=== PATIENT | female | born 1940 | race Caucasian/White ===

== ENCOUNTER 2017-07-22 13:40 | Inpatient (IN) ==
--- NOTE | 2017-07-21 16:40 | Discharge Summary ---
<Karey Prajapati E - Last Filed: 07/21/17 16:37> Date of Encounter: 07/21/17 - Discharge Diagnosis (1) Arthritis of left knee Priority: Primary Status: Chronic (2) Hypothyroidism Priority: Secondary Status: Chronic Qualifiers: Hypothyroidism type: unspecified Qualified Code(s): E03.9 - Hypothyroidism , unspecified (3) HTN (hypertension) Priority: Secondary Status: Chronic Qualifiers: Hypertension type: unspecified Qualified Code(s): I10 - Essential (primary ) hypertension (4) HLD (hyperlipidemia) Priority: Secondary Status: Chronic Qualifiers: Hyperlipidemia type: unspecified Qualified Code(s): E78.5 - Hyperlipidemia , unspecified (5) Glaucoma Priority: Secondary Status: Chronic Qualifiers: Glaucoma type: unspecified Laterality: unspecified laterality Qualified Code(s): H40.9 - Unspecified glaucoma - Discharge Medications Home Medications: Aspirin Enteric Coated [Aspirin EC] 325 mg PO DAILY 21 Days #21 tablet. [Rx] OxyCODONE Immed Rel [Roxicodone 5 MG] 5 mg PO Q6HR PRN 7 Days #28 tablet [Rx] Acetaminophen [Tylenol Arthritis] 650 mg PO BID 07/22/17 [History] Atorvastatin Calcium [Lipitor] 20 mg PO QPM 07/22/17 [History] Levothyroxine [Synthroid] 75 mcg PO DAILY 07/22/17 [History] Lisinopril [Zestril] 20 mg PO DAILY 07/22/17 [History] Timolol Maleate 0.5% 1 drop BOTH EYES BID 07/22/17 [History] Allergies/Adverse Reactions: 3 Allergy/AdvReac Type Severity Reaction Status Date / Time rosuvastatin [From Crestor] AdvReac Cramping Verified 07/22/17 18:35 of the Muscles simvastatin [From Zocor] AdvReac Cramping Verified 07/22/17 18:35 of the Muscles PERCH Allergy Anaphylaxis Uncoded 07/22/17 18:35 Primary care physician: Nayely Suarez MD - Patient Status Disposition: Transfer Inpatient Rehab Fac Condition: Good - Discharge Instructions Follow Up With: Nayely Suarez MD [Primary Care Provider] - - Hospital Course Hospital course: Ms. Brown is a 77 year old female - Time Spent with Patient Total time spent providing and/or coordinating discharge services: <MoultonDarrin - Last Filed: 07/24/17 09:43> Date of Encounter: 07/24/17 Time of Encounter: 09:42 - Discharge Diagnosis (1) Arthritis of left knee Priority: Primary Status: Chronic (2) Hypothyroidism Priority: Secondary Status: Chronic Qualifiers: Hypothyroidism type: unspecified Qualified Code(s): E03.9 - Hypothyroidism , unspecified (3) HTN (hypertension) Priority: Secondary Status: Chronic Qualifiers: Hypertension type: unspecified Qualified Code(s): I10 - Essential (primary ) hypertension (4) HLD (hyperlipidemia) Priority: Secondary Status: Chronic Qualifiers: Hyperlipidemia type: unspecified Qualified Code(s): E78.5 - Hyperlipidemia , unspecified (5) Glaucoma Priority: Secondary Status: Chronic Qualifiers: Glaucoma type: unspecified Laterality: unspecified laterality Qualified Code(s): H40.9 - Unspecified glaucoma (6) Status post total left knee replacement Priority: Primary Status: Acute Primary care physician: Nayely Suarez MD - Patient Status Functional capacity at discharge: uses cane/walker Overall status at discharge: patient is progressing back to baseline - Hospital Course Hospital course: Ms. Brown is a 77 year old female Status post left total knee replacement The patient had an uneventful postoperative course. They received antibiotics and physical therapy and were discharged in stable condition. There will follow -up in the office in 2 weeks. - Time Spent with Patient Total time spent providing and/or coordinating discharge services:
--- NOTE | 2017-07-21 16:42 | Physician Discharge Referral ---
Home Health/Hosp Referral Info Transfer to: Home Health Attending Provider: Dr. Darrin Moulton - Diagnosis (1) Arthritis of left knee Priority: Primary Status: Chronic (2) Hypothyroidism Priority: Secondary Status: Chronic (3) HTN (hypertension) Priority: Secondary Status: Chronic (4) HLD (hyperlipidemia) Priority: Secondary Status: Chronic (5) Glaucoma Priority: Secondary Status: Chronic (6) Status post total left knee replacement Priority: Primary Status: Acute - Respiratory Orders Smoking Cessation: Smoking cessation has been advised. For more information, call the [place] Tobacco Quit Line at 5-055-LVRJ-NOW. - Dressing/Wound Care Site: left knee Type of Dressing/Treatments w/Frequency: Opsite placed. Keep dressing intact until first follow up appointment. If > 50% saturated, notify office, remove dressing and place appropriate dressing back in place. Leave Zipline intact. Opsite dressing is water resistant, not water- proof. OK to shower, but do not get dressing wet. - Diet/Nutrition Diet/Nutrition Orders: Regular - Activity Activity Orders: Up ad angelic, Ambulate, Chair, Walker Activity: List: Total Knee replacement Precautions x 6 weeks Apply cold therapy wrap 3-6x/day for 20 minutes at a time. Encourage ambulation throughout the day and incentive spirometer 10x/hour. Elevate affected extremity above heart as tolerated. Brace: Wear knee immobilizer at night x 2 weeks. - Services Needed Following services are medically necessary services: Nursing, Home Health Aide, Physical Therapy, Occupational Therapy - Transfer Medications Prescriptions: OxyCODONE Immed Rel [Roxicodone 5 MG] 5 mg PO Q6HR PRN 7 Days #28 tablet PRN Reason: Pain Aspirin Enteric Coated [Aspirin EC] 325 mg PO DAILY 21 Days #21 tablet. Home Medications: Aspirin Enteric Coated [Aspirin EC] 325 mg PO DAILY 21 Days #21 tablet. [Rx] OxyCODONE Immed Rel [Roxicodone 5 MG] 5 mg PO Q6HR PRN 7 Days #28 tablet [Rx] Allergies/Adverse Reactions: 3 Allergy/AdvReac Type Severity Reaction Status Date / Time rosuvastatin [From Crestor] Allergy Cramping Unverified 06/24/17 11:44 of the Muscles simvastatin [From Zocor] Allergy Cramping Unverified 06/24/17 11:44 of the Muscles Certification: Further, I certify that my clinical findings support that this patient is homebound (i.e. absences from home require considerable and taxing effort and are for medical reasons or yazidism services or infrequently or short duration when for other reasons) because: Homebound Reason: Post-surgery restriction and or conditions limit ability to leave home Attestation: My signature below is to certify that this patient is under my care and that I, or nurse practitioner, or a physician retail store assistant working with me, has a face-to- face encounter with this patient.
[2017-07-22] MEDS ORDERED: ROPIVACAINE HCL/PF 0.5% 30 ML VIAL ONE ×2 (13:46→14:47)
[2017-07-22] MEDS ORDERED: CeFAZolin Syr 2,000MG/20 ML 2,000 MG/20 ML SYRINGE IVPB ONE (13:55)
--- NOTE | 2017-07-22 13:55 | Anesthesia Evaluation PreOp ---
Date of Encounter: 07/22/17 Time of Encounter: 13:53 - Past History Planned Operation: Left Total Knee Arthroplasty Cardiac History: HTN, Hyperlipidemia Pulmonary History: Denies Any Significant HX [employer]BI[employer]ICE [employer]ATION ATTENDANT History: Denies Any Significant HX Other Medical History: Diabetes Type II (diet controlled), Thyroid Anesthesia History: No Prior Anesthetic Complications, Past Anesthesia Alcohol Use: none Drug use: none Medications and Allergies Aspirin Enteric Coated [Aspirin EC] 325 mg PO DAILY 21 Days #21 tablet. [Rx] OxyCODONE Immed Rel [Roxicodone 5 MG] 5 mg PO Q6HR PRN 7 Days #28 tablet [Rx] Acetaminophen [Tylenol Arthritis] 650 mg PO BID 07/22/17 [History] Atorvastatin Calcium [Lipitor] 20 mg PO QPM 07/22/17 [History] Levothyroxine [Synthroid] 75 mcg PO DAILY 07/22/17 [History] Lisinopril [Zestril] 20 mg PO DAILY 07/22/17 [History] Timolol Maleate 0.5% 1 drop BOTH EYES BID 07/22/17 [History] 3 Allergy/AdvReac Type Severity Reaction Status Date / Time rosuvastatin [From Crestor] AdvReac Cramping Unverified 07/22/17 13:55 of the Muscles simvastatin [From Zocor] AdvReac Cramping Unverified 07/22/17 13:55 of the Muscles - Meds/Allergy Pre-op Review Medications Reviewed: Yes Allergies Reviewed: Yes Beta Blockers on Current Med List: No Anesthesia Results - Labs Laboratory Tests 06/24/17 06/24/17 06/24/17 12:00 12:00 12:00 WBC 4.5 Hgb 14.1 Hct 44.0 Plt Count 259 PT 10.6 Sodium 140 Potassium 4.1 BUN 12 Creatinine 0.79 - Imaging EKG: report reviewed (06/24/2017 SINUS RHYTHM MODERATE VOLTAGE CRITERIA FOR LVH , CONSIDER NORMAL VARIANT POSSIBLE ANTERIOR MYOCARDIAL INFARCTION, PROBABLY OLD) Anesthesia Exam O2 Sat Height 1.63 m Height 1.63 m Weight 69.4 kg Weight 69.4 kg O2 Sat by Pulse Oximetry 93 Vital Signs Temp Pulse Resp BP Pulse Ox 97.9 F 76 16 185/82 93 07/22/17 13:57 07/22/17 13:57 07/22/17 13:57 07/22/17 13:57 07/22/17 13:57 Height: 5'4'' Weight: 153 lbs NPO (# of Hours): 8 Pain Scale: 0 Pain Scale Used: Numeric (1 - 10) - HEENT Pupil (Motor): EOMI Mallampati: II Teeth: Normal, Missing Oral Opening: Greater than 3 - AUTOMO[employer]ICE [employer]ATION ATTENDANT LOC: Oriented [employer]ICE [employer]ATION ATTENDANT Motor: Normal RUE, Normal LUE, Normal RLE, Normal LLE, Normal Face [employer]ICE [employer]ATION ATTENDANT Sensory: Normal: RUE, LUE, RLE, LLE, Face - Cardiac Rhythm: Regular Murmur: None - Pulmonary Breath Sounds: bilateral Clear Respiratory Effort: Symmetrical Anesthesia Assess/Plan ASA Score: 2 Modified [place] Scale for Level of Consciousness: Cooperative, oriented, and tranquil Anesthetic Plan: General, Regional Monitoring Plan: Standard Monitors Recovery Plan: PACU
[2017-07-22] MEDS ORDERED: Plasma-Lyte A (PH 7.4) 1,000 ML IVC SCH ×2 (14:00→15:45)
[2017-07-22] MEDS ORDERED: *HR* Propofol 200 MG/20 ML VIAL IVP ONE (14:16)
[2017-07-22] MEDS ORDERED: *HR* FentaNYL (PF) 100 MCG/2 ML VIAL ONE (14:16)
[2017-07-22] MEDS ORDERED: Dexamethasone 4 MG/ML VIAL ONE ×2 (14:17→14:48)
[2017-07-22] MEDS ORDERED: Lidocaine -MPF 2% 2 ML VIAL ONE (14:17)
[2017-07-22] MEDS ORDERED: Ondansetron 4 MG/2 ML VIAL ONE (14:17)
[2017-07-22] MEDS ORDERED: Lidocaine -MPF 4% 5 ML AMPUL ONE (14:17)
--- NOTE | 2017-07-22 14:33 | History & Physical Report ---
Date of Encounter: 07/22/17 Time of Encounter: 14:33 24 Hour HP Update - Instructions Instructions: If the History and Physical is less than 30 days old and was completed prior to A.M. admission and or procedure and has NOT been updated on calendar day of procedure please complete this update prior to performing procedure. - Update Patient reports changes in Medical Condition: No Changes in examination, assessment, or condition: No Changes in Medication: No Preop tests/diagnostics Reviewed: Yes Surgery Remains Indicated: Yes Consent for Planned Operative Procedure(s) Verified: Yes - Pre-Operative Checklist Preoperative Checklist Indicated: No Prophylactic Antibiotic Ordered: Yes Is VTE Prophylaxis Indicated?: Yes
[2017-07-22] MEDS ORDERED: Bupivacaine/Clonidine Syringe 1 EACH SYRINGE ONE (14:47)
[2017-07-22] MEDS ORDERED: Ethanol\\Acetic Acid\\Na Ace\\Ben 1,000 ML IRRIG.SOLN IR ONE (15:10)
--- NOTE | 2017-07-22 15:34 | Anesthesia Procedures ---
Date of Encounter: 07/22/17 Time of Encounter: 15:30 Procedures: Anesthesia - Nerve Block Procedure Date: 07/22/17 Time: 15:30 Allergies/Adv Reactions: Statins Pre-op Diagnosis: Left Knee Arthritis Surgical Procedure: Left Total Knee Arthroplasty Checklist: Correct Patient Identifier, Correct procedure, History checked Correct side: Left Blood Thinner: No Monitor Applied: EKG, BP, Pulse Oximetry Supplemental Oxygen via Nasal Cannula (L/min): 2 Sedation: Fentanyl (mcg): 100 Indication: Post Op Analgesia Pre-op Neuro Deficits: No Block Type: Femoral, Other Catheter placed: No Sterile Technique: Yes Ultrasound used: Yes Anatomy identified: Yes Visual spread of Local: Yes Neuro Stimulation: Yes Nerve Stimulator Range: 0.2 - 0.4 mA Blood on Needle Aspiration: No Smooth Injection of Local: Yes Pain with Injection of Local: No Prep: Chlorhexadine Needle: 22 x 50 mm Stimuplex, 21 x 100 mm Stimuplex Local: 0.25% Bupivicaine w/Clonidine 20 mcg/cc, Ropivacaine Volume (cc): 55 Number of Attempts: 1 Complications: None/effective block Vitals: Last Vital Signs Temp 97.9 F 07/22/17 13:57 Pulse 71 07/22/17 15:28 Resp 16 07/22/17 13:57 BP 172/83 07/22/17 15:28 Pulse Ox 97 07/22/17 15:28 Comments: Ropivacaine 0.5% with decadron 4mg (30ml) for femoral block. Bupivacaine 0.25% with 20mcg/ml Clonidine (25ml)
[2017-07-22] MEDS ORDERED: Naloxone 0.4 MG/ML INJ IVP PRN ×2 (15:42→17:50)
[2017-07-22] MEDS ORDERED: Ondansetron 4 MG/2 ML VIAL IVP ONE (15:42)
[2017-07-22] MEDS ORDERED: *HR* HYDROmorphone (PF) 1 MG/ML SYRINGE IVP PRN ×2 (15:42→17:50)
[2017-07-22] MEDS ORDERED: Albuterol 2.5 MG/3 ML NEBULIZER IH ONE (15:42)
[2017-07-22] MEDS ORDERED: EPHEDrine 50 MG/ML VIAL ONE (15:52)
[2017-07-22] MEDS ORDERED: *HR* HYDROmorphone 2 MG/ML SYRINGE ONE (16:02)
--- NOTE | 2017-07-22 16:18 | Orthopedic Operative Note ---
Date of procedure: 07/22/17 Pre-op diagnosis: Left knee arthritis Post-op diagnosis: same Procedure: Procedure: Left Total knee replacement Estimated blood loss: 200 cc Hardware: Metal and polyethylene replacement. Arthrex Femur: 4 Tibia: 3 PS insert: 12 Patella: 37 Exam Under anesthesia: Loss full extension 10 degrees full flexion Procedural Notes: Grade 4 arthritic changes medial compartment and patellofemoral joint. Operative procedure: The patient was brought to the operating room and placed on the operating room table. After general anesthesia was administered the operative knee was examined. Findings were noted in the exam under anesthesia. The operative extremity was prepped and draped in sterile surgical fashion. The patient received IV antibiotics prior to skin incision. A standard midline incision was made centered over the patella. The incision was made through the skin and subcutaneous tissue. A medial parapatellar tendon approach was performed. Care was taken to preserve tissue along the medial aspect of the patella. And to protect the patella tendon. The deep MCL was released off the medial tibia. The infra patella fat pad was excised. Knee was brought into flexion. Patient noted to have grade 4 arthritic changes medial compartment and patellofemoral joint. The entry hole was made for the intramedullary femoral guide. The guide was seated in 6 degrees of valgus. Anterior cut was made followed by the distal cut. The ACL the PCL the medial and the lateral menisci were excised. The tibia was subluxed forward. The entry hole was made for the intramedullary tibial guide. Guide was seated to resect 2 mm off the more abnormal side. The knee was brought into flexion the distal femur was sized to a 4. The femoral guide was seated, the anterior cut was made followed by the posterior condylar cut, followed by the chamfer cuts. The finishing guide was seated the box cut was made and the lug holes were drilled. The tibia was sized to a 3, the tibial tray was seated and prepared with the large drill followed by the fin cutter. Trial reduction revealed full extension no varus valgus instability with the appropriate 12 PS Janis. The patella was everted and cut was made at the level of the insertion of the quadriceps and patella tendon. The patella was sized to 34 the guide was seated and the lug holes are drilled. Trial reduction revealed excellent patella tracking. All trial components were removed all bony surfaces were irrigated. The tibia was cemented first followed by the femur. The 12 PS Janis was seated and the knee was brought into full extension. The patella was cemented and held in place with the patellar holding clamp. After the cement had hardened, the knee sat for 2 minutes with a Betadine saline solution. The PA close the knee. The knee was then irrigated out with 2 L of pulse irrigation. The extensor mechanism was closed with #2 FiberWire suture and #2 PDS suture. The subcutaneous tissue was then irrigated and closed deep with #1 PDS suture superficially with 0 PDS suture and skin was closed with skin lili. The patient was then placed in a sterile dressing and a postoperative brace extubated and transferred to recovery room in stable condition. Anesthesia: GETA Surgeon: Darrin Moulton Condition: stable Disposition: PACU
--- NOTE | 2017-07-22 17:23 | Anesthesia Evaluation Post Op ---
Date of Encounter: 07/22/17 Time of Encounter: 17:23 - Vital Signs Vital Signs: Vital Signs/O2 Sat, Most Current Temp Pulse Resp BP Pulse Ox 97.4 F L 75 16 138/66 98 07/22/17 16:54 07/22/17 17:14 07/22/17 17:14 07/22/17 17:14 07/22/17 17:14 - Lungs Lungs: Clear Ascult./Percussion - Airway Airway: Non-obstructed - Cardiovascular Regular Rate - Mental Status Mental Status: Alert & Oriented, Answers Appropriately - Pain Pain Scale: 0 Pain Scale used: Numeric (1 - 10) - Nausea Vomiting Nausea Vomiting: Not Present - Hydration Hydration: NPO, Has not voided - Discharge PostOp Status: Transfer Patient to floor
[2017-07-22 17:29] LABS: Hematocrit 38.8 % (35.3-44.9); Hemoglobin 12.2 g/dL (11.5-15.4)
[2017-07-22] MEDS ORDERED: *HR* OxyCODONE Immed Rel 5 MG TABLET PO PRN (17:50)
[2017-07-22] MEDS ORDERED: Temazepam 15 MG CAPSULE PO PRN (17:50)
[2017-07-22] MEDS ORDERED: Sennosides 8.6 MG TABLET PO PRN (17:50)
[2017-07-22] MEDS ORDERED: MOM Conc 10 ML UD.LIQ PO PRN (17:50)
[2017-07-22] MEDS ORDERED: Ringers Solution, Lactated 1,000 ML IVC SCH (17:50)
[2017-07-22] MEDS ORDERED: *HR* Enoxaparin 30 MG/0.3 ML SYRINGE SQ SCH (18:00)
[2017-07-22] MEDS: *HR* OxyCODONE Immed Rel 5 MG TABLET PO PRN (18:36)
[2017-07-22] MEDS: *HR* Enoxaparin 30 MG/0.3 ML SYRINGE SQ SCH (18:37)
[2017-07-22] MEDS: CeFAZolin Premix DUPLEX 2,000 MG/50 ML BAG IVPB SCH (23:01)
[2017-07-23] MEDS: *HR* OxyCODONE Immed Rel 5 MG TABLET PO PRN ×2 (04:09→20:08)
[2017-07-23] MEDS: CeFAZolin Premix DUPLEX 2,000 MG/50 ML BAG IVPB SCH (06:02)
[2017-07-23] MEDS: *HR* Enoxaparin 30 MG/0.3 ML SYRINGE SQ SCH ×2 (06:03→17:59)
--- NOTE | 2017-07-23 06:55 | Orthopedics Progress Note ---
Date of Encounter: 07/23/17 Time of Encounter: 06:54 - Assessment and Plan (1) Arthritis of left knee Current Visit: No Status: Chronic (2) Hypothyroidism Current Visit: No Status: Chronic Qualifiers: Hypothyroidism type: unspecified Qualified Code(s): E03.9 - Hypothyroidism , unspecified (3) HTN (hypertension) Current Visit: No Status: Chronic Qualifiers: Hypertension type: unspecified Qualified Code(s): I10 - Essential (primary ) hypertension (4) HLD (hyperlipidemia) Current Visit: No Status: Chronic Qualifiers: Hyperlipidemia type: unspecified Qualified Code(s): E78.5 - Hyperlipidemia , unspecified (5) Glaucoma Current Visit: No Status: Chronic Qualifiers: Glaucoma type: unspecified Laterality: unspecified laterality Qualified Code(s): H40.9 - Unspecified glaucoma (6) Status post total left knee replacement Current Visit: No Status: Acute Subjective Interval history: Patient was seen this morning doing well without complaints. Afebrile vital signs stable. Operative extremity: Neurovascularly intact Dressing clean dry and intact Calves nontender Assessment and plan: Continue with postoperative care Hematocrit 38 Objective Vital signs: Vital Signs Temp Pulse Resp BP Pulse Ox 07/23/17 06:50 98.0 F 66 16 108/68 93 07/23/17 03:54 97.6 F 67 17 107/61 92 07/22/17 23:50 97.7 F 69 16 118/79 94 07/22/17 20:29 97.5 F L 73 16 132/68 97 07/22/17 19:35 97.4 F L 67 16 130/65 97 07/22/17 19:15 97.4 F L 67 15 138/68 98 07/22/17 18:33 97.8 F 68 14 140/72 96 07/22/17 17:59 97.5 F L 73 16 138/71 94 07/22/17 17:33 97.3 F L 77 16 143/71 95 07/22/17 17:24 97.0 F L 75 16 143/54 98 07/22/17 17:14 75 16 138/66 98 07/22/17 17:04 75 12 154/77 97 07/22/17 16:54 97.4 F L 73 10 105/52 98 07/22/17 15:28 71 172/83 97 07/22/17 15:21 71 183/86 98 07/22/17 15:12 64 175/101 99 07/22/17 13:57 97.9 F 76 16 185/82 93 Intake and Output 07/22/17 07/22/17 07/23/17 15:59 23:59 07:59 Intake Total / 50 / 50 600 / 600 Output Total 300 / 300 800 / 800 Balance -250 / -250 -200 / -200 Intake: IV Fluids / 20 50 / 50 Ancef Premix DUPLEX 2,000 mg In 50 / 50 50 ml @ 100 mls/hr IVPB Q8H [place] Rx#:[id number] Ancef Syringe 2,000 MG/20 ML 2, 20 / 20 000 mg In 20 ml @ 200 mls/hr IVPB PREOP ONE Rx#:[id number] Oral 600 / 600 Output: Urine 800 / 800 Estimated Blood Loss 300 / 300 Other: Weight 69.4 kg - Labs CBC & BMP: 07/22/17 17:17 - VTE Documentation of Mechanical Device: Venous foot pump, device Consult Discharge Plan - Plan Referrals: Nayely Suarez MD [Primary Care Provider] -
[2017-07-23 07:24] LABS: Hematocrit 37.7 % (35.3-44.9); Hemoglobin 11.8 g/dL (11.5-15.4)
[2017-07-23 07:37] LABS: BUN/Creatinine Ratio 22 (6-26); Blood Urea Nitrogen 20 mg/dL (7-20); Calcium 8.6 mg/dL (8.6-10.8); Carbon Dioxide 26 mEq/L (19-29); Chloride 104 mEq/L (98-109); Glucose 166 mg/dL (70-99); Osmolality,Calculated 296 (280-300); Potassium 4.5 mEq/L (3.5-4.5); Sodium 140 mEq/L (136-145); eGFR For African Americans > 60 (> 60); eGFR For Non-African Americans > 60 (> 60)
[2017-07-23] MEDS: Lisinopril 20 MG TABLET PO SCH (08:07)
--- NOTE | 2017-07-23 12:28 | Event Note ---
Date of Encounter: 07/23/17 Time of Encounter: 12:55 PCR- POD#1 L TKR 07/20 [place] PCR - Patient seen at bedside. 07/23 - H/H 11.8/37.7 Pain control: Adequate Participating in PT. All questions and concerns addressed. Educated on use of incentive spirometer, ambulation, and hydration. Patient educated on post-operative restrictions and care. Addressed: see above. D/C plan: Home with
[2017-07-24] MEDS: *HR* OxyCODONE Immed Rel 5 MG TABLET PO PRN ×4 (03:32→21:23)
[2017-07-24] MEDS: *HR* Enoxaparin 30 MG/0.3 ML SYRINGE SQ SCH ×2 (05:31→17:12)
[2017-07-24 06:42] LABS: Hematocrit 31.6 % (35.3-44.9)
[2017-07-24 06:44] LABS: Hemoglobin 10.1 g/dL (11.5-15.4)
[2017-07-24 07:03] LABS: BUN/Creatinine Ratio 33 (6-26); Blood Urea Nitrogen 27 mg/dL (8-23); Calcium 8.5 mg/dL (8.6-10.3); Carbon Dioxide 30 mEq/L (23-29); Chloride 102 mEq/L (98-107); Glucose 173 mg/dL (70-105); Osmolality,Calculated 293 (280-300); Potassium 4.2 mEq/L (3.5-5.1); Sodium 137 mEq/L (136-145); eGFR For African Americans > 60 (> 60); eGFR For Non-African Americans > 60 (> 60)
[2017-07-24] MEDS: Ondansetron 4 MG/2 ML VIAL IVP PRN ×2 (08:41→17:12)
[2017-07-24] MEDS: Lisinopril 20 MG TABLET PO SCH (08:42)
--- NOTE | 2017-07-24 09:44 | Orthopedics Progress Note ---
Date of Encounter: 07/24/17 Time of Encounter: 09:44 - Assessment and Plan (1) Arthritis of left knee Current Visit: No Status: Chronic (2) Hypothyroidism Current Visit: No Status: Chronic Qualifiers: Hypothyroidism type: unspecified Qualified Code(s): E03.9 - Hypothyroidism , unspecified (3) HTN (hypertension) Current Visit: No Status: Chronic Qualifiers: Hypertension type: unspecified Qualified Code(s): I10 - Essential (primary ) hypertension (4) HLD (hyperlipidemia) Current Visit: No Status: Chronic Qualifiers: Hyperlipidemia type: unspecified Qualified Code(s): E78.5 - Hyperlipidemia , unspecified (5) Glaucoma Current Visit: No Status: Chronic Qualifiers: Glaucoma type: unspecified Laterality: unspecified laterality Qualified Code(s): H40.9 - Unspecified glaucoma (6) Status post total left knee replacement Current Visit: No Status: Acute Subjective Interval history: Patient was seen this morning doing well without complaints. Afebrile vital signs stable. Operative extremity: Neurovascularly intact Dressing clean dry and intact Calves nontender Assessment and plan: Continue with postoperative care Hematocrit 31 DC home Objective Vital signs: Vital Signs Temp Pulse Resp BP Pulse Ox 07/24/17 05:46 98.9 F 62 18 131/64 100 07/24/17 03:34 73 121/63 07/24/17 00:34 99.4 F 77 17 138/71 97 07/23/17 19:54 98.3 F 78 16 124/70 92 07/23/17 14:25 97.6 F 70 18 110/65 93 07/23/17 10:51 97.4 F L 75 18 108/59 93 Intake and Output 07/23/17 07/24/17 07/24/17 23:59 07:59 15:59 Intake Total 240 / 240 Balance 240 / 240 Intake: Oral 240 / 240 Other: Meal Dinner Percent of Meal Consumed 10% # Voids 0 0 Weight 73.2 kg Patient Weight 07/24/17 23:59 Weight 73.2 kg - Labs CBC & BMP: 07/24/17 06:22 07/24/17 06:22 Labs: Abnormal lab results Hgb 10.1 g/dL (11.5-15.4) L D 07/24/17 06:22 Hct 31.6 % (35.3-44.9) L 07/24/17 06:22 Carbon Dioxide 30 mEq/L (23-29) H 07/24/17 06:22 BUN 27 mg/dL (8-23) H 07/24/17 06:22 BUN/Creatinine Ratio 33 (6-26) H 07/24/17 06:22 Glucose 173 mg/dL (70-105) H 07/24/17 06:22 Calcium 8.5 mg/dL (8.6-10.3) L 07/24/17 06:22 - VTE Documentation of Mechanical Device: Venous foot pump, device Consult Discharge Plan - Plan Referrals: Nayely Suarez MD [Primary Care Provider] -
--- NOTE | 2017-07-24 13:01 | Event Note ---
Date of Encounter: 07/24/17 Time of Encounter: 11:40 PCR- POD#2 L TKR 07/20 [place] PCR - Patient seen at bedside. 07/23 - H/H 11.8/37.7 07/24 - H/H 10.1/31.6 Pain control: Adequate Participating in PT but did need extra encouragment to participate. Educated her on the importance of participating in therapy and bending the knee. Instructed her to work on HEP when therapy is not at her house. Patient expressed understanding. All questions and concerns addressed. Educated on use of incentive spirometer, ambulation, and hydration. Patient educated on post-operative restrictions and care. Addressed: see above. D/C plan: Home with HH tomorrow after therapy session
[2017-07-25] MEDS: Ondansetron 4 MG/2 ML VIAL IVP PRN (02:11)
[2017-07-25] MEDS: *HR* Enoxaparin 30 MG/0.3 ML SYRINGE SQ SCH (05:59)
[2017-07-25] MEDS: Lisinopril 20 MG TABLET PO SCH (08:57)
[2017-07-25] MEDS: *HR* OxyCODONE Immed Rel 5 MG TABLET PO PRN (08:59)
--- NOTE | 2017-07-25 09:16 | Orthopedics Progress Note ---
Date of Encounter: 07/25/17 Time of Encounter: 09:16 - Assessment and Plan (1) Arthritis of left knee Current Visit: No Status: Chronic (2) Hypothyroidism Current Visit: No Status: Chronic Qualifiers: Hypothyroidism type: unspecified Qualified Code(s): E03.9 - Hypothyroidism , unspecified (3) HTN (hypertension) Current Visit: No Status: Chronic Qualifiers: Hypertension type: unspecified Qualified Code(s): I10 - Essential (primary ) hypertension (4) HLD (hyperlipidemia) Current Visit: No Status: Chronic Qualifiers: Hyperlipidemia type: unspecified Qualified Code(s): E78.5 - Hyperlipidemia , unspecified (5) Glaucoma Current Visit: No Status: Chronic Qualifiers: Glaucoma type: unspecified Laterality: unspecified laterality Qualified Code(s): H40.9 - Unspecified glaucoma (6) Status post total left knee replacement Current Visit: No Status: Acute Subjective Interval history: Patient was seen this morning doing well without complaints. Afebrile vital signs stable. Operative extremity: Neurovascularly intact Dressing clean dry and intact Calves nontender Assessment and plan: Continue with postoperative care Discharged today Objective Vital signs: Vital Signs Temp Pulse Resp BP Pulse Ox 07/25/17 07:23 98.8 F 88 16 163/77 93 07/25/17 05:21 99.1 F 83 14 151/71 93 07/24/17 23:35 99.6 F 91 16 143/81 100 07/24/17 21:12 2 07/24/17 19:29 99.3 F 93 16 149/74 93 07/24/17 14:55 98.2 F 80 16 154/75 95 07/24/17 09:53 98.7 F 68 16 129/68 99 Intake and Output 07/24/17 07/25/17 07/25/17 23:59 07:59 15:59 Intake Total 240 / 240 Output Total 0 / 0 0 / 0 Balance 0 / 0 0 / 0 240 / 240 Intake: Oral 240 / 240 Output: Urine 0 / 0 0 / 0 Other: Meal Breakfast Percent of Meal Consumed 10% # Voids 1 Weight 73.5 kg Patient Weight 07/25/17 23:59 Weight 73.5 kg - Labs CBC & BMP: 07/24/17 06:22 07/24/17 06:22 Labs: Abnormal lab results Hgb 10.1 g/dL (11.5-15.4) L D 07/24/17 06:22 Hct 31.6 % (35.3-44.9) L 07/24/17 06:22 Carbon Dioxide 30 mEq/L (23-29) H 07/24/17 06:22 BUN 27 mg/dL (8-23) H 07/24/17 06:22 BUN/Creatinine Ratio 33 (6-26) H 07/24/17 06:22 Glucose 173 mg/dL (70-105) H 07/24/17 06:22 Calcium 8.5 mg/dL (8.6-10.3) L 07/24/17 06:22 - VTE Documentation of Mechanical Device: Venous foot pump, device Consult Discharge Plan - Plan Referrals: Nayely Suarez MD [Primary Care Provider] -
[2017-07-25 11:17] VITALS: BP 139/62
== END 2017-07-25 12:52 | DRG 470 ==
LOC: SAMDAY 13:40 → 3NENU 17:58
PROVIDERS: ADMIT Orthopaedic Surgery; ATTEND Orthopaedic Surgery